=== PATIENT | male | born 1995 | race Two or more races ===

== ENCOUNTER 2020-10-26 13:56 | Emergency (ER) | payer OTHER ==
[~2020-10-26] VITALS: Ht 182.9 cm; Wt 133.2 kg
--- NOTE | 2020-10-26 15:07 | NUR ---
CELL STRIPPER FINAL: PT AMBULATORY TO ROOM WITH AUTISM TEACHER JELENA FROM [place] WITH STEADY GAIT AT THIS TIME.
[2020-10-26 15:38] VITALS: BP 151/92
== END 2020-10-26 15:42 | disposition home or self-care (01) ==
LOC: ED 14:30
DX: B34.9 Viral infection, unspecified (principal); R50.9 Fever, unspecified
CPT/HCPCS: 99282